=== PATIENT | male | born 1985 | race Caucasian/White ===

== ENCOUNTER 2017-12-30 16:22 | Emergency (ER) | payer OTHER ==
--- NOTE | 2017-12-30 16:34 | EDPHY ---
H & P Time Seen by Provider: 12/30/17 16:22 HPI/ROS: CHIEF COMPLAINT: Abdominal pain, testicular pain HISTORY OF PRESENT ILLNESS: 32-year-old male presents to the emergency department with sudden onset of right-sided abdominal pain and right testicular pain that began approximately 1.5 hr ago. He states that he was just sitting at home when the pain came on abruptly. He has never had pain like this in the past. No reported trauma. He was feeling nauseous although no vomiting. He states that the pain was subsiding a bit and decided to go to urgent care and they called EMS for transport to the hospital. No urinary symptoms. He denies dysuria, urgency or frequency with urination. No hematuria. No history of kidney stones. No abdominal surgeries. He states that the pain has improved and now is more localized in his right groin and testicle area. REVIEW OF SYSTEMS: Constitutional: No fever, no chills. Eyes: No double or blurry vision. ENT: No sore throat. Respiratory: No cough, no shortness of breath. Cardiac: No chest pain. Gastrointestinal: Abdominal pain as above. No vomiting or diarrhea. Genitourinary: No dysuria. Musculoskeletal: No neck or back pain. Skin: No rashes. Neurological: No headache. Past Medical/Surgical History: [place] teeth extraction Social History: Single Physical Exam: General Appearance: Alert, moderate distress. Temperature 36.7 degrees. Eyes: Pupils equal and round. Extraocular motions are all intact. ENT: Mouth: Mucous membranes moist. Respiratory: No wheezing, rhonchi, or rales, lungs are clear to auscultation. Cardiovascular: Regular rate and rhythm. Gastrointestinal: Abdomen is soft and nontender, no masses, no rebound or guarding, bowel sounds normal. Genitourinary: Performed with nurse, dated, at bedside. Circumcised penis. He has reproducible pain with palpation in the right testicle. Feels slightly swollen compared to the left side. No ecchymosis. No redness. Neurological: Alert and oriented x 3, cranial nerves II through XII grossly intact Skin: Warm and dry, no rashes. Musculoskeletal: Nontender to palpate along the cervical, thoracic or lumbar spine. Neck is supple. Extremities: Full range of motion and no peripheral edema. Psychiatric: Patient is oriented X 3, there is no agitation. Constitutional: Initial Vital Signs Temperature (C) 36.7 C 12/30/17 16:29 Heart Rate 89 12/30/17 16:29 Respiratory Rate 16 12/30/17 16:29 Blood Pressure 119/94 H 12/30/17 16:29 O2 Sat (%) 96 12/30/17 16:29 O2 Delivery Mode Room Air Allergies/Adverse Reactions: sulfamethoxazole [From Bactrim] Allergy (Verified 12/30/17 16:31) trimethoprim [From Bactrim] Allergy (Verified 12/30/17 16:31) Home Medications: Medication Instructions Recorded levOFLOXACIN [Levofloxacin] 500 mg PO DAILY #10 tablet 12/30/17 Medical Decision Making - Diagnostics Imaging Results: Imaging Impressions Testicular Ultrasound 12/30/17 16:40 Impression: 1. Acute right-sided epididymitis 2. Right greater than left-sided hydroceles 3. Borderline left-sided varicocele Imaging: Discussed imaging studies w/ farmworker Radiologist ED Course/Re-evaluation: 32-year-old male presents to the emergency department with right lower quadrant abdominal pain and right testicular pain. Clinically I was initially concerned about testicular torsion given his swelling to the right testicle and pain with palpation. Testicular ultrasound was ordered which revealed no evidence of testicular torsion. He did have evidence of hydrocele and epididymitis. The patient has not been sexually active for over 1 year. He is not concerned about sexually transmitted infection. He will be treated with Levaquin 500 mg daily for 10 days. He was given urology referral. I also encouraged him to wear supportive undergarments. He was instructed to return to the emergency department if he developed recurring testicular pain, if he developed vomiting or if he felt worse in any way. The case was discussed with Dr. Xiong, secondary supervising physician, who did not directly evaluate the patient but agrees with treatment and plan. Differential Diagnosis: Including but not limited to kidney stone, testicular torsion, inguinal hernia, acute appendicitis, urinary tract infection, pyelonephritis - Data Points Laboratory Results: Laboratory Results 12/30/17 16:15 12/30/17 16:15 12/30/17 12/30/17 12/30/17 16:32 16:15 16:15 WBC 8.68 10^3/uL 10^3/uL (3.80-9.50) RBC 5.72 10^6/uL 10^6/uL (4.40-6.38) Hgb 17.0 g/dL g/dL (13.7-17.5) Hct 48.1 % % (40.0-51.0) MCV 84.1 fL fL (81.5-99.8) MCH 29.7 pg pg (27.9-34.1) MCHC 35.3 g/dL g/dL (32.4-36.7) RDW 12.5 % % (11.5-15.2) Plt Count 252 10^3/uL 10^3/uL (150-400) MPV 10.2 fL fL (8.7-11.7) Neut % (Auto) 71.3 % % (39.3-74.2) Lymph % (Auto) 21.1 % % (15.0-45.0) [place] % (Auto) 5.6 % % (4.5-13.0) Eos % (Auto) 1.0 % % (0.6-7.6) Baso % (Auto) 0.7 % % (0.3-1.7) Nucleat RBC Rel Count 0.0 % % (0.0-0.2) Absolute Neuts (auto) 6.18 10^3/uL 10^3/uL (1.70-6.50) Absolute Lymphs (auto) 1.83 10^3/uL 10^3/uL (1.00-3.00) Absolute Monos (auto) 0.49 10^3/uL 10^3/uL (0.30-0.80) Absolute Eos (auto) 0.09 10^3/uL 10^3/uL (0.03-0.40) Absolute Basos (auto) 0.06 10^3/uL 10^3/uL (0.02-0.10) Absolute Nucleated RBC 0.00 10^3/uL 10^3/uL (0-0.01) Immature Gran % 0.3 % % (0.0-1.1) Immature Gran # 0.03 10^3/uL 10^3/uL (0.00-0.10) Sodium 140 mEq/L mEq/L (135-145) Potassium 4.1 mEq/L mEq/L (3.5-5.2) Chloride 102 mEq/L mEq/L (97-110) Carbon Dioxide 19 mEq/l L mEq/l (22-31) Anion Gap 19 mEq/L H mEq/L (8-16) BUN 31 mg/dL H mg/dL (7-23) Creatinine 0.8 mg/dL mg/dL (0.7-1.3) Estimated GFR > 60 Glucose 113 mg/dL H mg/dL (70-100) Calcium 9.4 mg/dL mg/dL (8.5-10.4) Urine Color YELLOW Urine Appearance CLEAR Urine pH 6.0 (5.0-7.5) Ur Specific [place] 1.030 (1.002-1.030) Urine Protein NEGATIVE (NEGATIVE) Urine Ketones 1+ H (NEGATIVE) Urine Blood NEGATIVE (NEGATIVE) Urine Nitrate NEGATIVE (NEGATIVE) Urine Bilirubin NEGATIVE (NEGATIVE) Urine Urobilinogen NEGATIVE EU EU (0.2-1.0) Ur Leukocyte Esterase NEGATIVE (NEGATIVE) Urine RBC 1-3 /hpf /hpf (0-3) Urine WBC 1-3 /hpf /hpf (0-3) Ur Epithelial Cells TRACE /lpf /lpf (NONE-1+) Urine Mucus TRACE /lpf /lpf (NONE-1+) Urine Glucose NEGATIVE (NEGATIVE) Medications Given: Discontinued Medications Fentanyl (Sublimaze) 50 mcg IVP EDNOW ONE Stop: 12/30/17 16:52 Last Admin: 12/30/17 16:55 Dose: 50 mcg Departure - Departure Disposition: Home, Routine, Self-Care Clinical Impression: Epididymitis Condition: Good Instructions: Levofloxacin (By mouth), Epididymitis (ED) Additional Instructions: Levaquin 500 mg daily for 10 days. Supportive under shorts as discussed. Follow up with urologist as discussed. Referrals: Benjamin Talbert MD [Medical Doctor] - 2-3 days, call for appt. (Urologist on-call) Prescriptions: levOFLOXACIN [Levofloxacin] 500 mg PO DAILY #10 tablet
[2017-12-30 16:38] LABS: PLATELET COUNT 252 10^3/uL (150-400)
[2017-12-30] MEDS ORDERED: fentaNYL 100 MCG/2 ML INJ IVP ONE (16:51)
[2017-12-30 18:39] VITALS: BP 131/79; PULSE 69; RESP 18; TEMP 98.2; O2SAT 97
== END 2017-12-30 18:47 | disposition home or self-care (01) ==
DX: N45.1 Epididymitis (principal)
CPT/HCPCS: 96374; J3010

== ENCOUNTER 2018-01-23 17:00 | Emergency (ER) | payer OTHER ==
--- NOTE | 2018-01-23 18:06 | EDPHY ---
General Time Seen by Provider: 01/23/18 17:38 Narrative: CHIEF COMPLAINT: Scalp laceration HISTORY OF PRESENT ILLNESS: Patient presents with complaints of scalp laceration. He was attempting to catch his dog when he jumped struck his head on the doorjamb. He sustained a laceration to the top of the head. No loss of conscious. No neck pain. No visual disturbance. No vomiting. No trauma elsewhere. It is minimally painful. He has no radiating complaints. No motor sensory complaints. Tetanus up-to-date less than 5 years ago. TIME OF INJURY: 1 hr prior to arrival TETANUS STATUS: Less than 5 years ago MEDICAL/SURGICAL/SOCIAL HISTORY: Uncomplicated medical history. REVIEW OF SYSTEMS: Ten systems reviewed and are negative unless otherwise noted in the HPI EXAMINATION General Appearance: Alert, no distress Head: normocephalic. Superficial laceration to the top of the scalp. No Xie sign. No raccoon eyes. Cardiovascular: Pulses normal throughout. Brisk cap refill Neurological: GCS 15. A&O, sensory symmetric, strength symmetric Skin: Warm and dry, no rash. Laceration without the scalp that is T-shaped. It is approximately 1.5 x 1.5 x 1.5 cm in a square/T shape. Minimal bleeding. No foreign body. Small area of skin avulsion on the right side of the wound. Extremities: Nontender, no pedal edema. Symmetric range of motion. DIFFERENTIAL DIAGNOSES: Including but not limited to laceration, superficial laceration, intracranial hemorrhage, concussion MDM: 5:40 p.m. Superficial scalp laceration. Minimal head trauma with no loss of consciousness. Minimal headache. No visual disturbance. No signs of basilar skull fracture. Using Jennings CT head rules, there is no indication for CT scan of the head. I will anesthetize the wound evaluate for possible closure. This is a superficial avulsion and the skin tissue may not be viable. 6:05 p.m. Scalp laceration with some avulsion of the tissue on the right side of the wound. I have irrigated the wound myself. I have close the area that is able to be repaired with 7 simple interrupted sutures. There is a small area of tissue avulsion on the right side of the wound that will need to heal by secondary intention. We discussed daily wound care. We discuss follow up here in 7-10 days for suture removal. We discussed signs of infection to watch for. We also discussed head injury precautions. PROCEDURE: Laceration repair Consent: Verbal Location: Top of the scalp Length of repair: 1.5 x 1.5 x 1.5 cm Complexity: Complex Layer involvement: Single Anesthesia: Local per 1% lidocaine plain. 7 mL Irrigation: Extensive Debridement: I debrided total of 2square cm tissue. Procedure description: Following good anesthesia, the wound was copiously irrigated. Wound bed was explored with a sterile glove, and there is no foreign body noted. Debridement as above. Wound borders were approximated well with good hemostasis. There is a small area on the right side, 2 square cm of tissue avulsion that could not be repaired. Tolerated well without complication. Suture/Staple material: 5-0 Ethilon, 7 simple interrupted sutures Wound care: Routine as discussed Suture/Staple removal: 7-10 Days SUPERVISION: This patient was independently evaluated without direct involvement of or examination by the attending physician. ED Precautions: Worsening pain. Erythema, edema, cyanosis, pallor, paresthesia or anesthesia. - History Smoking Status: Never smoked - Objective Vital Signs: Initial Vital Signs Temperature (C) 98.4 F 01/23/18 17:09 Heart Rate 70 01/23/18 17:09 Respiratory Rate 16 01/23/18 17:09 Blood Pressure 132/86 H 01/23/18 17:09 O2 Sat (%) 99 01/23/18 17:09 O2 Delivery Mode Room Air Allergies/Adverse Reactions: sulfamethoxazole [From Bactrim] Allergy (Verified 01/23/18 17:09) trimethoprim [From Bactrim] Allergy (Verified 01/23/18 17:09) Home Medications: Medication Instructions Recorded Effexor Xr 01/23/18 Departure - Departure Disposition: Home, Routine, Self-Care Clinical Impression: Soft tissue avulsion Scalp laceration Qualifiers: Encounter type: initial encounter Qualified Code(s): S01.01XA - Laceration without foreign body of scalp, initial encounter Condition: Good Instructions: Care For Your Stitches (DC), Laceration (ED) Additional Instructions: 1. Daily wound care as discussed 2. Return here in 7-10 days for suture removal 3. Head injury precautions as discussed Referrals: Physician,Emergency Dept, [Medical Doctor] - As per Instructions (7-10 days for suture removal)
[2018-01-23 18:21] VITALS: BP 135/78
== END 2018-01-23 18:21 | disposition home or self-care (01) ==
PROC: 0HQ0XZZ Repair Scalp Skin, External Approach (ICD-10-PCS; principal; 2018-01-23)
DX: S01.01XA Laceration without foreign body of scalp, initial encounter (principal); W22.03XA Walked into furniture, initial encounter; Y99.8 Other external cause status; Y93.39 Activity, other involving climbing, rappelling and jumping off